=== PATIENT | male | born 1990 | race Two or more races ===

== ENCOUNTER 2023-09-21 11:05 | Inpatient (IN) | payer MEDICAID, OTHER ==
[~2023-09-21] VITALS: Ht 170.2 cm; Wt 78.8 kg
[2023-09-21] MEDS: SODIUM CHLORIDE 0.9% 1,000 ML IV ONE ×3 (12:09→15:50)
[2023-09-21 12:33] LABS: Basophils # (auto) 0.1 10 ^3/uL (0-0.2); Basophils % (auto) 0.4 % (0.0-2.0); Eosinophils # (auto) 0 10 ^3/uL (0-0.8); Eosinophils % (auto) 0.2 % (0.0-7.0); Hematocrit 43.6 % (41.0-53.0); Hemoglobin 14.9 g/dL (13.5-17.5); Lymphocytes # (auto) 1.9 10 ^3/uL (0.4-5.4); Lymphocytes % (auto) 11.1 % (10.0-50.0); Mean Corpuscular Hemoglobin 30.9 pg (28.0-32.0); Mean Corpuscular Hgb Conc. 34.2 g/dL (32.0-36.0); Mean Corpuscular Volume 90.4 fL (80.0-100.0); Monocytes % (auto) 11.9 % (0.0-12.0); Neutrophils # (auto) 13.2 10 ^3/uL (1.6-8.6); Neutrophils % (auto) 76.4 % (37.0-80.0); Red Blood Cells 4.83 10^6/uL (4.5-5.90); Red Cell Distribution Width 12.7 % (11.8-14.3); White Blood Cell 17.2 10^3/uL (4.4-10.8)
[2023-09-21 12:49] LABS: Alanine Aminotransferase 33 U/L (7-40); Albumin 4.7 g/dL (3.2-4.8); Alkaline Phosphatase 66 U/L (46-116); Anion Gap 13 (5-15); Aspartate Aminotransferase 46 U/L (13-40); BUN/Creatinine Ratio 20.4 (10.0-20.0); Blood Urea Nitrogen 20 mg/dL (9-23); Calcium 9.4 mg/dL (8.7-10.4); Carbon Dioxide 21 mmol/L (20-30); Chloride 102 mmol/L (98-107); Creatine Kinase IFCC 1247 U/L (46-171); Glucose 71 mg/dL (74-106); Magnesium 2.4 mg/dL (1.6-2.6); Potassium 4.1 mmol/L (3.5-5.1); Sodium 136 mmol/L (136-145)
[2023-09-21 12:50] LABS: Bilirubin, Total 3.8 mg/dL (0.2-1.0); Total Protein 7.1 g/dL (5.7-8.2)
[2023-09-21] MEDS ORDERED: ACETAMINOPHEN 325 MG TAB PO PRN (15:45)
[2023-09-21] MEDS ORDERED: DOCUSATE SOD 100 MG CAP PO PRN (15:45)
[2023-09-21] MEDS ORDERED: ONDANSETRON HCL 4 MG/2 ML VIAL IV PRN (15:45)
[2023-09-21] MEDS ORDERED: HYDROcodone-ACET 5/325MG TAB PO PRN (15:45)
[2023-09-21] MEDS: ERYTHROMY OPTH OINT 5mg/gm 1gm or 3.5gm tube OP ONE (16:51)
[2023-09-21 19:11] LABS: Urine Bacteria None Seen /hpf (None Seen)
[2023-09-21 19:33] LABS: Urine Blood Negative /uL (Negative); Urine Clarity Clear (Clear); Urine Color Light-Orange (Yellow); Urine Protein, UAD TRACE (Negative); Urine Specific Gravity 1.033 (1.001-1.035); Urine Urobilinogen 2 mg/dL (Negative); Urine WBC 3 /hpf (0 - 3)
[2023-09-21 19:43] LABS: Amphetamine Screen, Urine Pos (NEGATIVE); Barbiturate Scree,Urine Neg (NEGATIVE); Benzodiazephine Screen, Urine Neg (NEGATIVE); Cannabinoid Screen, Urine Neg (NEGATIVE); Cocaine Screen, Urine Neg (NEGATIVE); Opiate Scree,Urine Neg (NEGATIVE); Phencyclidine Screen, Urine Neg (NEGATIVE)
[2023-09-21] MEDS: LACTATED RINGER'S 1,000 ML IV ONE (19:49)
[2023-09-21 19:59] VITALS: PULSE 91; RESP 22; O2SAT 94
[2023-09-21] MEDS: SODIUM CHLOR 0.9% PF (SALINE LOCK) 10ML VIAL/SYR IV SCH (22:00)
[2023-09-21 22:03] VITALS: PULSE 83; RESP 18; O2SAT 99
[2023-09-22 01:00] VITALS: BP 108/65; PULSE 71; RESP 18; TEMP 97.8; O2SAT 99
[2023-09-22 05:00] VITALS: BP 109/64; PULSE 74; RESP 18; TEMP 97.4; O2SAT 100
[2023-09-22 08:00] VITALS: BP 122/76; PULSE 74; RESP 18; TEMP 98.1; O2SAT 100
[2023-09-22] MEDS: FAMOTIDINE 20 MG TAB PO SCH (10:04)
[2023-09-22] MEDS: ENOXAPARIN SOD 40 MG/0.4 ML SYRINGE SC SCH (10:05)
[2023-09-22] MEDS ORDERED: NEOMYCIN-POLYM-GRAM OPTH(EYE) SOL 10ML EACHEYE ONE (11:00)
[2023-09-22] MEDS: NEOMYCIN-POLYM-GRAM OPTH(EYE) SOL 10ML EACHEYE SCH (12:24)
[2023-09-22 13:00] VITALS: BP 124/71; PULSE 69; RESP 16; TEMP 98; O2SAT 99
[2023-09-22 15:50] VITALS: BP 124/71; PULSE 69; RESP 16; TEMP 98; O2SAT 99
[2023-09-22 16:51] VITALS: BP 99/75; PULSE 83; RESP 16; TEMP 98; O2SAT 100
== END 2023-09-22 17:30 | disposition home or self-care (01) | DRG 351 ==
LOC: EDBD 11:05 → ER 11:05 → OVERFLOW 15:38 → WEST WING 21:50
PROVIDERS: ADMIT Internal Medicine Pulmonary Disease; ATTEND Internal Medicine Pulmonary Disease
DX: M62.82 Rhabdomyolysis (principal); E86.0 Dehydration; F15.10 Other stimulant abuse, uncomplicated; F10.10 Alcohol abuse, uncomplicated; F32.A Depression, unspecified; Z59.00 Homelessness unspecified
CPT/HCPCS: 36415; 71045; 76705; 80053; 80307; 80320; 81001; 82550; 83605; 83735; 84484; 85025; 96360; 99291; G0378